=== PATIENT | female | born 1980 | race Caucasian/White ===

== ENCOUNTER 2021-12-13 12:14 | Outpatient (CLI) | payer OTHER, SELFPAY ==
[2021-12-13 21:58] LABS: Cholesterol* 125 mg/dL (90-199)
[2021-12-13 21:59] LABS: Glucose* 84 mg/dL (60-115); HDL Cholesterol* 56 mg/dL (>=50); LDL Cholesterol Calculated 61 mg/dL (<100); Triglycerides* 40 mg/dL (40-149)
[2021-12-14 19:41] LABS: Iron* 36 ug/dL (37-170)
[2021-12-14 20:31] LABS: Vitamin B12* 415 pg/mL (243-894)
[2021-12-15 17:04] LABS: Free T3 2.2 pg/mL (2.5-4.3)
== END 2021-12-13 12:15 | disposition home or self-care (01) ==
PROVIDERS: PCP Physician Assistant Medical; Visit Provider Physician Assistant Medical
DX: Z01.419 Encounter for gynecological examination (general) (routine) without abnormal findings (principal); E89.0 Postprocedural hypothyroidism; Z13.1 Encounter for screening for diabetes mellitus; Z13.6 Encounter for screening for cardiovascular disorders
CPT/HCPCS: 80061; 82607; 82947; 83540; 84443; 84481

== ENCOUNTER 2022-03-13 14:54 | Outpatient (CLI) | payer OTHER, SELFPAY ==
[2022-03-13 16:02] VITALS: BP 124/69; PULSE 73
--- NOTE | 2022-03-13 17:23 | W.PM.STED ---
Stress Test Note Date Date of test: 03/13/22 Providers Primary care provider: Kelley Lakhani Stress test physician: Vinh Aguilar Stress Test Note Stress test ordered: Stress Echo Indication for test: Bradycardia, fatigue Results discussion: This very nice lady presents for the above test after discussion the risks benefits and side effects she would like to proceed pretest EKG shows normal sinus rhythm, with a heart rate 62, blood pressure 125/87, no acute ST wave changes are noted, review of the cardiac stress test medical history form is done. Standard Michael protocol is employed over a time course of 13 minutes and 34 seconds, achieved a metabolic COVID of 14.1 Mets, with a maximum heart rate of 156, which is 102% of the target. Test is terminated because of fulfillment of protocol, during this test, she had no ST wave changes suggestive of ischemia, she was asymptomatic, and recovered normally. In the recovery. Review of her tests showed no further dysrhythmias Impression: Negative electrographic portion of stress echo Follow up suggested: Suggest follow-up with primary care, review of echo portion will be done by Cardiology, clinical correlation with this will be needed, patient left this testing facility in excellent condition. At baseline
== END 2022-03-13 14:55 | disposition home or self-care (01) ==
LOC: STRESS 14:55
PROVIDERS: PCP Physician Assistant Medical; Visit Provider Family Medicine
DX: R00.1 Bradycardia, unspecified (principal); R53.83 Other fatigue
CPT/HCPCS: 93016; 93325; 93351

== ENCOUNTER 2022-04-04 11:26 | Outpatient (CLI) | payer OTHER, SELFPAY ==
--- NOTE | 2022-04-04 11:30 | CRLHL7_ITS ---
For Patients: As a result of the Cures Act, medical imaging exams and procedure reports are released immediately into your electronic medical record. You may view this report before your referring provider. If you have questions, please contact your health care provider. BILATERAL SCREENING MAMMOGRAM WITH COMPUTER-AIDED DETECTION AND TOMOSYNTHESIS TECHNIQUE: CC and MLO views were obtained. These mammographic images have been obtained using full-field digital technique. These mammographic images were interpreted with the benefit of computer-aided detection. Breast Tomosynthesis was used in this interpretation. COMPARISON FILM: 03/21/21. FINDINGS: The breasts are heterogeneously dense, which may obscure small masses IMPRESSION: There is no radiographic evidence for malignancy. ASSESSMENT: BI-RADS Category 1: Negative RECOMMENDATION: Routine screening mammogram in 1 year. A lay language report of this examination will be provided to the patient. Tad Handley M.D. Diagnostic Radiologist [email or web address] STEW/ana / be/Dictated by: Tad Handley MD @ 04/04/2022 12:33:00 PM (Electronically Signed)
== END 2022-04-04 11:27 | disposition home or self-care (01) ==
PROVIDERS: PCP Physician Assistant Medical; Visit Provider Physician Assistant Medical
DX: Z12.31 Encounter for screening mammogram for malignant neoplasm of breast (principal); R92.2 Inconclusive mammogram
CPT/HCPCS: 77063; 77067

== ENCOUNTER 2022-06-01 15:30 | Outpatient (RCR) | payer OTHER, SELFPAY | END 2022-08-30 23:59 | disposition home or self-care (01) | PROVIDERS: PCP Physician Assistant Medical; Visit Provider Physician Assistant Medical | DX: M25.521 Pain in right elbow (principal); Z51.89 Encounter for other specified aftercare | CPT/HCPCS: 97110; 97140; 97165; 97535; X5282 ==

== ENCOUNTER 2022-12-17 07:44 | Outpatient (CLI) | payer OTHER, SELFPAY ==
[2022-12-17 16:21] LABS: Chlamydia DNA Amplified* NOT DETECTED (No Detected); GC DNA Amplified* NOT DETECTED (No Detected)
== END 2022-12-17 07:45 | disposition home or self-care (01) ==
PROVIDERS: PCP Physician Assistant Medical; Visit Provider Physician Assistant Medical
DX: Z00.00 Encounter for general adult medical examination without abnormal findings (principal); E03.9 Hypothyroidism, unspecified; D64.9 Anemia, unspecified; R79.89 Other specified abnormal findings of blood chemistry; N92.0 Excessive and frequent menstruation with regular cycle; Z11.59 Encounter for screening for other viral diseases; Z11.3 Encounter for screening for infections with a predominantly sexual mode of transmission
CPT/HCPCS: 80053; 82607; 82746; 83540; 83550; 84443; 84481; 86703; 86803; 87491; 87591

== ENCOUNTER 2023-02-20 06:06 | Day surgery (SDC) | payer OTHER, SELFPAY ==
[2023-02-20] MEDS: LACTATED RINGERS 1000 ML 1,000 ML 100 ML IV (06:10)
[2023-02-20 06:22] VITALS: BMI 27.8
[2023-02-20 06:26] VITALS: BP 118/81; PULSE 49; RESP 16; TEMP 36.4; O2SAT 98
[2023-02-20 06:29] LABS: Ur HCG Qualitative* Negative (Negative)
[2023-02-20] MEDS: SODIUM CHLORIDE 0.9 % (FLUSH) 10 ML SYRINGE IVF (06:36)
[2023-02-20] MEDS: BUPIVACAINE 0.5% 30 ML INJECTION (07:55)
[2023-02-20] MEDS: SILVER NITRATE APPLICATOR 1 EACH STICK..EA. TOPICAL (07:57)
--- NOTE | 2023-02-20 07:57 | SUR.OPER ---
DEFECIT 140ML
--- NOTE | 2023-02-20 08:03 | W.PM.H&PU ---
History & Physical Update History & Physical Update H&P Reviewed and patient assessed: No changes noted
--- NOTE | 2023-02-20 08:03 | W.PM.GYNPROC ---
Procedure Note Date of procedure: 02/20/23 Pre-op diagnosis: Abnormal Uterine Bleeding-suspected endometrial polyps Post-op diagnosis: same Procedure: Hysteroscopy, dilation and curettage Anesthesia: MAC Complications: None Surgeon: Greyson Alex MD Estimated blood loss (mL): 5 Urine Output (mL): 50 Pathology: specimen obtained, sent to pathology (endometrial curettings) Condition: stable Disposition: same day Findings: Findings: Speculum exam: cervix grossly normal, no gross lesions or abnormal discharge. Intrauterine cavity: Retroverted uterus of about 8cm, bilateral cornual openings seen, multiple polypoid like lesions in the endometrium. Procedure Description: Patient was taken to the OR were MAC anesthesia was administered without difficulty. She was placed in the dorsal lithotomy position with Rosas type stirrups. Patient was then prepared and draped in the normal sterile fashion. A bivalved speculum was inserted in the posterior aspect of the vagina. 0.5% Marcaine was injected at 2 and 11 o'clock a total of about 10mL utilized. A single-tooth tenaculum was used to grasp the anterior lip of the cervix. The cervical os was sequentially dilated to accommodate the 5 mm TrueClear hysteroscope using Hegar dilators. A 5 mm 30 degree TrueClear hysteroscope was introduced under direct visualization, and the uterus was distended with normal saline. Findings as above. Soft tissue incisor blade from TrueClear hysteroscope system was introduced under direct visualization and endometrial curettings performed with removal of polypoid like lesions. Hysteroscope removed under direct visualization. Tenaculum was removed from the cervix and good hemostasis was noted at puncture sites after silver nitrate applied. Patient tolerated the procedure well. Instrument and sponge counts were correct x2. The patient was awakened from MAC anesthesia and taken to the recovery room in a stable condition. The patient will go home after recovering from anesthesia and meeting all the criteria for discharge. She was given instruction regarding follow-up visit in 2 weeks at [facility] and instructions for pain medication. Fluid deficit: 120mL The brief performed at the end of procedure, procedure name, EBL, pathology specimens all clarified.
[2023-02-20 08:06] VITALS: BP 113/74; PULSE 59; RESP 16; TEMP 36.9; O2SAT 96
[2023-02-20 08:15] VITALS: BP 101/68; PULSE 50; RESP 16; TEMP 36.9; O2SAT 99
--- NOTE | 2023-02-20 08:16 | W.ANESCHARGE ---
Anesthesia Charges Start Date/Time Anesthesia Start Date: 02/20/23 Anesthesia Start Time: 07:22 Stop Date/Time Anesthesia Stop Date: 02/20/23 Anesthesia Stop Time: 08:09
[2023-02-20 08:30] VITALS: BP 108/67; PULSE 50; RESP 16; O2SAT 99
[2023-02-20 08:45] VITALS: BP 110/77; PULSE 49; RESP 16; O2SAT 99
[2023-02-20 09:00] VITALS: BP 110/74; PULSE 48; RESP 16; O2SAT 99
--- NOTE | 2023-02-20 09:00 | W.ANESCHARGE ---
Anesthesia Charges Start Date/Time Anesthesia Start Date: 02/20/23 Anesthesia Start Time: 07:22 Stop Date/Time Anesthesia Stop Date: 02/20/23 Anesthesia Stop Time: 08:09
== END 2023-02-20 09:25 | disposition home or self-care (01) ==
PROVIDERS: PCP Physician Assistant Medical; Visit Provider Obstetrics & Gynecology
PROC: 0UDB8ZZ Extraction of Endometrium, Via Natural or Artificial Opening Endoscopic (ICD-10-PCS; CPT 58558; principal; 2023-02-20 07:15)
DX: N93.8 Other specified abnormal uterine and vaginal bleeding (principal); N84.0 Polyp of corpus uteri
CPT/HCPCS: 58558; 00952; 81025; 85018; 88305; A9270; J0665; J1100; J1885; J2704; J3010; J7120

== ENCOUNTER 2023-04-10 12:20 | Outpatient (CLI) | payer OTHER, SELFPAY ==
--- NOTE | 2023-04-10 13:40 | MM_ITS ---
Patient: JANETTE COLEMAN Facility:?[facility] Patient ID:?[id number] Site Patient ID:?[id number]. Site :?[id number] Study:?XRay-Breast Bilateral 3D W/CAD-04/10/2023 2:19:59 PM Ordering Physician:?Kelley Lakhani Final Report: BILATERAL SCREENING MAMMOGRAM WITH COMPUTER-AIDED DETECTION AND TOMOSYNTHESIS TECHNIQUE: CC and MLO views were obtained. These mammographic images have been obtained using full-field digital technique. These mammographic images were interpreted with the benefit of computer-aided detection. Breast Tomosynthesis was used in this interpretation. COMPARISON FILM: 04/04/22, 03/21/21. FINDINGS: The breasts are heterogeneously dense, which may obscure small masses. IMPRESSION: There is no radiographic evidence for malignancy. ASSESSMENT: BI-RADS Category 1: Negative RECOMMENDATION: Routine screening mammogram in 1 year. A lay language report of this examination will be provided to the patient. Tad Handley M.D. Diagnostic Radiologist [email or web address] STEW/sp R& Transcribed: 6:20 p.m. SP/Dictated by: Tad Handley MD @ 04/11/2023 10:12:00 AM Signed by:?Tad Handley MD @04/12/2023 5:37:14 AM (Electronic Signature)
== END 2023-04-10 12:21 | disposition home or self-care (01) ==
LOC: MAMMO 12:20
PROVIDERS: PCP Physician Assistant Medical; Visit Provider Physician Assistant Medical
DX: Z12.31 Encounter for screening mammogram for malignant neoplasm of breast (principal); R92.2 Inconclusive mammogram
CPT/HCPCS: 77063; 77067

== ENCOUNTER 2023-12-11 07:54 | Outpatient (CLI) | payer OTHER, SELFPAY | END 2023-12-11 07:55 | disposition home or self-care (01) | LOC: NFLDREF 15:11 | PROVIDERS: PCP Physician Assistant Medical; Referring Provider Physician Assistant Medical; Visit Provider Physician Assistant Medical | DX: Z00.00 Encounter for general adult medical examination without abnormal findings (principal); E03.9 Hypothyroidism, unspecified; D64.9 Anemia, unspecified; M25.50 Pain in unspecified joint; F41.9 Anxiety disorder, unspecified; Z13.6 Encounter for screening for cardiovascular disorders | CPT/HCPCS: 80053; 80061; 82607; 83540; 83550; 84443; 84481 ==

== ENCOUNTER 2023-12-18 08:25 | Outpatient (CLI) | payer OTHER, SELFPAY | END 2023-12-18 08:26 | disposition home or self-care (01) | LOC: NFLDREF 12-19 11:18 | PROVIDERS: PCP Physician Assistant Medical; Referring Provider Physician Assistant Medical; Visit Provider Physician Assistant Medical | DX: M25.50 Pain in unspecified joint (principal) | CPT/HCPCS: 82306; 86038; 86039; 86140; 86200; 86431; 86618; 86812 ==

== ENCOUNTER 2024-04-16 14:50 | Outpatient (CLI) | payer OTHER, SELFPAY | END 2024-04-16 14:51 | disposition home or self-care (01) | LOC: MAMMO 14:50 | PROVIDERS: PCP Physician Assistant Medical; Visit Provider Physician Assistant Medical | DX: Z12.31 Encounter for screening mammogram for malignant neoplasm of breast (principal); R92.333 Mammographic heterogeneous density, bilateral breasts | CPT/HCPCS: 77063; 77067 ==

== ENCOUNTER 2025-01-14 08:03 | Outpatient (CLI) | payer OTHER, SELFPAY | END 2025-01-14 08:04 | disposition home or self-care (01) | PROVIDERS: PCP Physician Assistant Medical; Visit Provider Physician Assistant Medical | DX: Z00.00 Encounter for general adult medical examination without abnormal findings (principal); E03.9 Hypothyroidism, unspecified | CPT/HCPCS: 80053; 80061; 82728; 82746; 82784; 84439; 84443; 84481; 86231; 86258; 86364 ==